=== PATIENT | female | born 1990 ===

== ENCOUNTER → 2017-01-05 | Outpatient (CLI) | payer BC | END | disposition home or self-care (01) | LOC: C.PAPS 11:45 | PROVIDERS: ATTEND Physician Assistant | DX: Z01.419 Encounter for gynecological examination (general) (routine) without abnormal findings (principal) ==

== ENCOUNTER → 2017-01-12 | Outpatient (CLI) | payer BC ==
--- NOTE | 2017-01-12 15:42 | MAMMOGRAPHY REPORT ---
ULTRASOUND OF RIGHT BREAST: 01/12/2017 CLINICAL HISTORY: The patient reports a palpable lump in her right breast with some associated tende rness in the region for approximately 3 weeks. COMPARISON: No prior exams were available for comparison. TECHNIQUE: Real-time targeted ultrasound of the right breast was performed. FINDINGS: Real-time, high resolution targeted ultrasound was performed of the area of the palpable lump pointed out by the patient, in the right breast at approximately 2:00, 6 cm from the nipple. A t the site of the palpable lump there is a lobulated circumscribed hypoechoic solid mass which measu res 1.4 x 0.9 x 1.2 cm. The mass is indeterminate and ultrasound-guided core needle biopsy is recom mended for further evaluation. IMPRESSION: ACR BI-RADS CATEGORY 4A: LOW SUSPICION FOR MALIGNANCY - FOLLOW-UP RECOMMENDED Hypoechoic solid 1.4 cm mass at the site of the palpable right lump at 2:00. The mass is indetermin ate and ultrasound-guided core needle biopsy is recommended for further evaluation. 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 A phone call was made to the physician's office to confirm faxed results were received. The patient was verbally notified of the results. She tentatively scheduled the biopsy before leaving the depa rtment. Regina Quesada M.D. /:01/12/2017 09:09:36 Antenna Design Engineer: Regina Quesada MD, [facility] letter sent: Abnormal 4/5 BI-RADS Code: ACR BI-RADS Category 4A: Low Suspicion For Malignancy
== END | disposition home or self-care (01) ==
LOC: C.MAMM 08:50
PROVIDERS: ATTEND Physician Assistant
DX: N63 Unspecified lump in breast (principal)

== ENCOUNTER → 2017-01-18 | Outpatient (CLI) | payer BC ==
--- NOTE | 2017-01-18 10:20 | Discharge Instructions ---
Discharge Instructions Procedure Procedure Date: January 18, 2017. Reason for visit: Right Mass. Discharge Discharge Date: January 18, 2017. Discharge Diagnosis: status post breast biopsy Instructions Activity Recommendations: Additional Limitations (see below) Return to School/Work: no limitations Recommended Home Diet: No Limitations Provider Instructions: ACTIVITY RECOMMENDATIONS: * No lifting, pushing, pulling or exercising the affected side for three days. RETURN TO SCHOOL/WORK: * You may return to work/school after the procedure, but do not perform any strenuous activities for 24 to 48 hours. MEDICATIONS: * Tylenol (two 325 mg) every four to six hours if needed for mild pain (if not allergic to Tylenol). DIET: * Resume previous diet. SPECIAL CARE INSTRUCTIONS: * Keep biopsy site dry for 24 hours. May shower after 24 hours, but do not soak (bathe) incision. * May remove Tegaderm (plastic patch) tomorrow AFTER showering. * Leave the steri-strips on for one week. Allow the steri-strips to fall off by themselves. If not off after one week, you may remove them. You may place a Bandaid crosswise over the strips, if desired. * Apply ice 10 minutes on and 10 minutes off as needed. * Wear a bra at bedtime to sleep more comfortably for 2-3 days. * Your referring physician should have the results after approximately 5 to 7 business days. * Call for unusual bleeding, fever, drainage, etc or if you have any questions call during normal business hours or after hours call Dr Quesada, [phone]. FOLLOW UP VISIT: Follow-up with Referring Physician as scheduled. Orlando Peters Recommendations: Call your doctor if: * Temperature above 101 degrees * Pain not relieved by pain medicine ordered * There is increased drainage or redness from any incision * You have any unanswered questions or concerns. Your Doctors Instructions noted above were prepared by provider Regina Quesada. Patient Signature Section: Patient Instructions Signature Page Bee Guerrero Patient (or Guardian) Signature/Date: I have read and understand the instructions given to me by my caregivers. Caregiver/RN/Doctor Signature/Date: The above-named patient and/or guardian has received patient instructions on this date. + Original Patient Signature Page (only) stays with chart. Please make copy for patient.
--- NOTE | 2017-01-19 15:05 | MAMMOGRAPHY REPORT ---
ULTRASOUND GUIDED BIOPSY RIGHT BREAST: 01/18/2017 CLINICAL HISTORY: Right 2:00 breast mass. PATIENT CONSENT: The procedure, risks and benefits were discussed with the patient and informed writ ten consent was obtained. A timeout was performed immediately prior to the procedure. PROCEDURE DESCRIPTION: With ultrasound guidance, aseptic technique, and lidocaine as the local anest hetic (1% lidocaine to anesthetize the skin and 1% lidocaine with epinephrine to anesthetize the real per tissues), the mass of concern in the right 2:00 breast was sampled 5 times with a 14-gauge Achie ve biopsy needle. Immediately thereafter, with ultrasound guidance, aseptic technique, and lidocain e as the local anesthetic, a metallic localizer clip was placed centrally in the mass. Direct press ure was applied to the site immediately post procedure and hemostasis was achieved. The patient hayley erated the procedure without complication. She was given wound care instructions. The specimens wer e sent to pathology for analysis. COMPARISON: Comparison is made to exam dated: 01/12/2017 ultrasound - [facility]. IMPRESSION: ULTRASOUND GUIDED BIOPSY Ultrasound guided biopsy of the right 2:00 breast mass, with clip placement. The patient will recei ve pathology results from her referring provider. Regina Quesada M.D. /:01/18/2017 10:23:17 Boom Stick Worker: Mattie PARK)(M), [facility]
== END | disposition home or self-care (01) ==
LOC: C.MAMM 09:37
PROVIDERS: ATTEND Physician Assistant
DX: N63 Unspecified lump in breast (principal)